=== PATIENT | female | born 1950 | race Caucasian/White ===

== ENCOUNTER 2016-11-13 22:43 | Observation (INO) | payer MEDICARE ==
[2016-11-13] MEDS ORDERED: ADENOSINE 6 MG/2 ML SYR IV ONE (23:03)
[2016-11-13] MEDS ORDERED: NS 1,000 ML IV ONE (23:04)
[2016-11-13] MEDS ORDERED: DILTIAZEM 25 MG/5 ML VIAL IV ONE ×2 (23:13)
[2016-11-13 23:17] LABS: AUTOMATED LYMPH 28.5 % (17-44); AUTOMATED MONOCYTE 6.5 % (3-10); MPV 7.4 fL (7.4-10.4)
[2016-11-13] MEDS ORDERED: Diltiazem HCl 100 MG in D5W 100 ML IV SCH (23:20)
[2016-11-13 23:27] LABS: PARTIAL THROMB. TIME 22.2 SEC (22-35); PT-INR 0.9
--- NOTE | 2016-11-13 23:37 | EDPRACDOC ---
<Junior Stokesmond Antonio - Last Filed: 11/14/16 00:09> - General Information Information Source: Patient Mode of Arrival: Car - History of Present Illness Onset: 2129 HPI: PT PRESENTS DUE TO SUBSTERNAL CHEST PAIN AND TACHYCARDIA. STATES THIS BEGAN AROUND 2129 TONIGHT WHILE SHE WAS WATCHING TV. DENIES NAUSEA, VOMITING, CHILLS OR FEVER. PT HAS NO HX OF CARDIAC ISSUES. STATES SHE HAD A CVA IN 2012. FAMILY HISTORY OF CHF Symptoms Started: Reports: At Rest Relevant History: Reports: None Pulse is: Rapid Defibrillator Firing: No Worsens with: Reports: Nothing Associated signs & symptoms: Reports: Chest pain Chest Pain Location: Reports: Substernal Pain Quality: Reports: Sharp, Stabbing Pain Radiation: Reports: Back <Nancy Flores - Last Filed: 11/14/16 02:10> - General Information Chief Complaint: Chest Pain Stated Complaint: CHEST PAIN Time Seen by Provider: 11/13/16 23:02 Home Medications: Home Medications Aspirin [Aspirin EC] 81 mg PO DAILY 04/06/16 Furosemide [Lasix] 20 mg PO DAILY PRN 04/06/16 Pravastatin [Pravachol] 80 mg PO HS 04/06/16 Cholecalciferol (Vitamin D3) [Vitamin D3] 1,000 unit PO DAILY 11/13/16 Allergies/Adverse Reactions: Allergies Allergy/AdvReac Type Severity Reaction Status Date / Time doxycycline calcium Allergy Unknown Verified 11/13/16 22:54 [From Vibramycin] doxycycline hyclate Allergy Unknown Verified 11/13/16 22:54 [From Vibramycin] doxycycline monohydrate Allergy Unknown Verified 11/13/16 22:54 [From Vibramycin] Latex, Natural Rubber Allergy Unknown Verified 11/13/16 22:54 ED Past Medical History - History Reviewed Yes Nurses notes reviewed and agree except as marked - Patient Medical History Psychological History: Denies: Depression - Social Medical History Smoking Status: Never smoker <Nancy Flores - Last Filed: 11/14/16 02:10> EDM Review of Systems - Review of Systems ROS Negative Except as Marked: Yes All systems reviewed and were negative except as marked <Nancy Flores - Last Filed: 11/14/16 02:10> - Physical Exam Last recorded Vital Signs: Last Vital Signs Temp 97.6 F 11/13/16 23:04 Pulse 98 11/13/16 23:38 Resp 20 11/13/16 23:38 BP 123/61 11/13/16 23:38 Pulse Ox 91 11/13/16 23:38 Oxygen Pulse Oxygen Saturation 91 O2 Device Room Air Oxygen Flow Rate Fraction of Inspired Oxygen ( FIO2) <Manolo Stokes - Last Filed: 11/14/16 00:09> - Physical Exam Constitutional: Alert Oriented to: Time, Person, Place Last recorded Vital Signs: Last Vital Signs Temp 97.6 F 11/13/16 23:04 Pulse 171 H 11/13/16 23:21 Resp 24 11/13/16 22:48 BP 163/84 11/13/16 23:09 Pulse Ox 91 11/13/16 22:48 Oxygen Pulse Oxygen Saturation 91 O2 Device Room Air Oxygen Flow Rate Fraction of Inspired Oxygen ( FIO2) - HEENT Head: Normal ( normocephalic) Eye Exam: Normal (PERRL, EOMI, Sclera white) Oropharynx: Normal (Pharynx:Moist without exudate,Gums-no swelling) Tympanic Membrane: Normal Nose: No Symptoms Reported (septum midline) Neck: Normal (FROM, trachea at midline) - Respiratory/Cardiovascular Respiratory: Normal - CTA (BBS clear to auscultation without adventitious sounds ) Cardiovascular: Tachycardia - GI Auscultation: Normal (NABS) Palpation: Normal (Soft,No rebound or guarding, non distended) Tenderness: Non tender Mcneal's Sign: Negative Rectal Exam: Deferred - Musculoskeletal Back: Normal (Non-Tender) Extremities: Normal (Normal tone, Pulses 2+ No cyanosis or edema, FROM) - Integumentary Skin: Normal, Warm, Dry Lymphatics: Normal (no adenopathy) - Neurologic Memory Impaired: Normal Motor Function: Normal (Normal tone, Pulses 2+ No cyanosis or edema, FROM) Cranial Nerve: Normal (CN II-X11 intact sensation, strength 5/5) Cerebellar: Normal Mood Description: Normal Perception: Normal <Nancy Flores - Last Filed: 11/14/16 02:10> - Re-evaluation Re-evaluation 2 Re-evaluation Time: 23:37 (i was present and examined the pt.te heart rhythm was irregular. adenosine caused a pause, and aflutter resumed.she converted to sinus tach transiently, thn back to a flutter.diltiazem wasadministered.) Re-evaluation 3 Re-evaluation Time: 00:09 (nsr rate 90s. chest pressure improved, 02/18.) - Results 11/13/16 23:05 11/13/16 23:05 WBC 10.0 xk/uL (3.8-10.8) 11/13/16 23: RBC 4.72 xM/uL (4.20-5.40) 11/13/16 23:05 Hgb 14.4 g/dL (12.0-16.0) 11/13/16 23:05 Hct 43.6 % (36-47) 11/13/16 23: MCV 92 fL (81-99) 11/13/16 23: MCH 30.5 pg (27-32) 11/13/16 23: MCHC 33.0 g/dl (33-36) 11/13/16 23: RDW 14.5 % (11.5-14.5) 11/13/16 23: Plt Count 281 xk/uL (130-400) 11/13/16 23:05 MPV 7.4 fL (7.4-10.4) 11/13/16 23:05 Neut % (Auto) 62.0 % (45-76) 11/13/16 23:05 Lymph % (Auto) 28.5 % (17-44) 11/13/16 23: [place] % (Auto) 6.5 % (3-10) 11/13/16 23: Eos % (Auto) 2.0 % (0-5) 11/13/16 23:05 Baso % (Auto) 1.0 % (0-2) 11/13/16 23:05 Absolute Neuts (auto) 6.20 xk/uL (1.7-8.2) 11/13/16 23: Absolute Lymphs (auto) 2.80 xk/uL (0.65-4.75) 11/13/16 23:05 PT 9.6 SEC (9.2-11.2) 11/13/16 23:05 INR 0.9 11/13/16 23:05 APTT 22.2 SEC (22-35) 11/13/16 23:05 Sodium 142 mEq/L (137-146) 11/13/16 23:05 Potassium 3.9 mEq/L (3.5-5.1) 11/13/16 23:05 Chloride 103 mEq/L (98-107) 11/13/16 23:05 Carbon Dioxide 23 mMOL/L (22-33) 11/13/16 23:05 Anion Gap 20 mEq/L (8-16) H 11/13/16 23:05 BUN 13 MG/DL (7-17) 11/13/16 23:05 Creatinine 0.70 MG/DL (0.52-1.04) 11/13/16 23:05 Estimated GFR (MDRD) > 60 mL/min (>=60) 11/13/16 23:05 Glucose 106 MG/DL (70-99) H 11/13/16 23:05 Calculated Osmolality 273 MOs/Kg (270-290) 11/13/16 23:05 Calcium 9.5 MG/DL (8.4-10.2) 11/13/16 23:05 Total Bilirubin 0.4 MG/DL (0.2-1.3) 11/13/16 23:05 AST 25 IU/L (14-36) 11/13/16 23:05 ALT 30 IU/L (9-52) 11/13/16 23:05 Alkaline Phosphatase 90 IU/L (55-165) 11/13/16 23:05 Creatine Kinase 50 IU/L (30-134) 11/13/16 23:05 Total Protein 7.4 G/DL (6.3-8.2) 11/13/16 23:05 Albumin 4.3 G/DL (3.5-5.0) 11/13/16 23:05 Lab Results 11/13/16 11/13/16 11/13/16 23:05 23:05 23:05 WBC 10.0 RBC 4.72 Hgb 14.4 Hct 43.6 MCV 92 MCH 30.5 MCHC 33.0 RDW 14.5 Plt Count 281 MPV 7.4 Neut % (Auto) 62.0 Lymph % (Auto) 28.5 [place] % (Auto) 6.5 Eos % (Auto) 2.0 Baso % (Auto) 1.0 Absolute Neuts (auto) 6.20 Absolute Lymphs (auto) 2.80 PT 9.6 INR 0.9 APTT 22.2 Sodium 142 Potassium 3.9 Chloride 103 Carbon Dioxide 23 Anion Gap 20 H BUN 13 Creatinine 0.70 Estimated GFR (MDRD) > 60 Glucose 106 H Calculated Osmolality 273 Calcium 9.5 Total Bilirubin 0.4 AST 25 ALT 30 Alkaline Phosphatase 90 Creatine Kinase 50 Total Protein 7.4 Albumin 4.3 <Manolo Stokes - Last Filed: 11/14/16 00:09> - Differential Diagnosis Atrial fibrillation, PSVT - Re-evaluation Re-evaluation 1 Re-evaluation Time: 23:37 (ADENISONE GIVEN, PT APPEARS TO BE HAVING AFIB, AFLUTTER. WILL CONTINUE TO MONITOR) Re-evaluation 4 Re-evaluation Time: 00:22 (HEART RATE NOW 86, NSR. PT HAS MINIMAL CHEST PRESSURE. WILL GIVE NITRO. VSS. NO ACUTE DISTRESS NOTED. ) - Results 11/13/16 23:05 11/13/16 23:05 WBC 10.0 xk/uL (3.8-10.8) 11/13/16 23:05 RBC 4.72 xM/uL (4.20-5.40) 11/13/16 23:05 Hgb 14.4 g/dL (12.0-16.0) 11/13/16 23:05 Hct 43.6 % (36-47) 11/13/16 23:05 MCV 92 fL (81-99) 11/13/16 23:05 MCH 30.5 pg (27-32) 11/13/16 23:05 MCHC 33.0 g/dl (33-36) 11/13/16 23:05 RDW 14.5 % (11.5-14.5) 11/13/16 23:05 Plt Count 281 xk/uL (130-400) 11/13/16 23:05 MPV 7.4 fL (7.4-10.4) 11/13/16 23:05 Neut % (Auto) 62.0 % (45-76) 11/13/16 23:05 Lymph % (Auto) 28.5 % (17-44) 11/13/16 23:05 Frio % (Auto) 6.5 % (3-10) 11/13/16 23:05 Eos % (Auto) 2.0 % (0-5) 11/13/16 23:05 Baso % (Auto) 1.0 % (0-2) 11/13/16 23:05 Absolute Neuts (auto) 6.20 xk/uL (1.7-8.2) 11/13/16 23:05 Absolute Lymphs (auto) 2.80 xk/uL (0.65-4.75) 11/13/16 23:05 PT 9.6 SEC (9.2-11.2) 11/13/16 23:05 INR 0.9 11/13/16 23:05 APTT 22.2 SEC (22-35) 11/13/16 23:05 Lab Results 11/13/16 11/13/16 23:05 23:05 WBC 10.0 RBC 4.72 Hgb 14.4 Hct 43.6 MCV 92 MCH 30.5 MCHC 33.0 RDW 14.5 Plt Count 281 MPV 7.4 Neut % (Auto) 62.0 Lymph % (Auto) 28.5 [place] % (Auto) 6.5 Eos % (Auto) 2.0 Baso % (Auto) 1.0 Absolute Neuts (auto) 6.20 Absolute Lymphs (auto) 2.80 PT 9.6 INR 0.9 APTT 22.2 - EKG EKG #1 Initial EKG Time: 22:59 -: Yes EKG interpreted by me Rate: bpm: 173 [place]: Normal Rhythm: PSVT Block: None Hypertrophy: None ST: Normal EKG #2 Initial EKG Time: 23:17 -: Yes EKG interpreted by me Rate: bpm: 157 [place]: Normal Rhythm: Aflutter Block: None Hypertrophy: None ST: Normal EKG #3 Initial EKG Time: 00:30 -: Yes EKG interpreted by me Rate: bpm: 81 [place]: Normal Rhythm: NSR Block: None Hypertrophy: None ST: Normal Comments: [facility] [place] <Nancy Flores - Last Filed: 11/14/16 02:10> <Manolo Stokes - Last Filed: 11/14/16 00:09> - Departure Disposition: Admit IP To This Hospital Education/Counseling Given To: Patient Education/Counseling Given Regarding: Diagnosis, Treatment, Prognosis, Follow Up Decision to Admit Time: 02:09 Decision to admit date: 11/14/16 Decision to admit: from ED - Physician Consulted Hospitalist Time Called: 02:09 Provider Called: Yrn Nguyen [employer] Returned Call: 02:10 <Nancy Flores - Last Filed: 11/14/16 02:10> - Departure Condition: Stable Final Diagnosis: New onset atrial flutter, PSVT (paroxysmal supraventricular tachycardia) Instructions: Chest Pain (ED) Referrals: Jeremy Doe MD [Primary Care Provider] - One Week
[2016-11-13 23:49] LABS: BLOOD UREA NITROGEN 13 MG/DL (7-17); CALCIUM 9.5 MG/DL (8.4-10.2); CALCULATED OSMOLALITY 273 MOs/Kg (270-290); CHLORIDE 103 mEq/L (98-107); CPK TOTAL WITH POSSIBLE MB 50 IU/L (30-134); GLUCOSE 106 MG/DL (70-99); SODIUM LEVEL 142 mEq/L (137-146); TOTAL PROTEIN 7.4 G/DL (6.3-8.2)
--- NOTE | 2016-11-14 00:08 | DIRPT ---
CLINICAL DATA: Acute onset of sharp mid chest pain and pressure. Initial encounter. EXAM: CHEST 2 VIEW COMPARISON: None. FINDINGS: The lungs are well-aerated. Minimal bibasilar atelectasis is noted. There is no evidence of pleural effusion or pneumothorax. The heart is borderline normal in size. No acute osseous abnormalities are seen. IMPRESSION: Minimal bibasilar atelectasis noted. Lungs otherwise clear. Electronically Signed By: Curtis Castro M.D. On: 11/14/2016 00:05
[2016-11-14] MEDS ORDERED: NITROGLYCERINE 2 % OINTMENT PACK TOP ONE (00:12)
[2016-11-14 00:51] LABS: LEUKOCYTES/URINE NEG (NEGATIVE); NITRITE/URINE NEG (NEGATIVE); URINE OCCULT BLOOD NEG (NEG/TRACE)
[2016-11-14] MEDS: IBUPROFEN 800 MG TAB PO ONE ×2 (01:29→01:33)
[2016-11-14] MEDS ORDERED: ACETAMINOPHEN 325 MG/TAB TABLET PO ONE ×2 (01:32)
[2016-11-14 02:16] LABS: CPK TOTAL WITH POSSIBLE MB 41 IU/L (30-134)
[2016-11-14] MEDS ORDERED: ACETAMINOPHEN 325 MG/TAB TABLET PO PRN (02:28)
[2016-11-14] MEDS ORDERED: ONDANSETRON HCL 4 MG/2 ML VIAL IV PRN (02:28)
[2016-11-14] MEDS ORDERED: NITROGLYCERINE 0.4 MG TAB SL PRN (02:29)
--- NOTE | 2016-11-14 02:33 | HISTPHYS ---
- Chief Complaint chest pain - History of Present Illness This is a pleasant 58-year-old female with a prior history of hypertension who was being admitted to the hospital [facility] due to chest pain. She was at rest at about 9:00 p.m. earlier this evening when she suddenly started to have chest tightness and chest pain in the midsternal area, without any radiation. She can 't emergency department, was found in the waiting area to have significant tachycardia. EKG showed SVT, after adenosine was given was found to be flutter. She responded well to IV diltiazem push, and was later placed on a drip. She converted to sinus rhythm after this, and rates have since been controlled. Despite this, she continues to have chest tightness and discomfort. As such, hospitalist group was consulted for further evaluation and potential coronary workup. No aggravating or alleviating factors. No therapies tried prior to arrival to the hospital. Patient denies any fevers, chills, shortness of breath, nausea, vomiting, diarrhea, rashes on the skin. - Medical History Psychological History: Denies: Depression - Medictions/Allergies Allergies doxycycline calcium [From Vibramycin] Allergy (Verified 11/13/16 22:54) Unknown doxycycline hyclate [From Vibramycin] Allergy (Verified 11/13/16 22:54) Unknown doxycycline monohydrate [From Vibramycin] Allergy (Verified 11/13/16 22:54) Unknown Latex, Natural Rubber Allergy (Verified 11/13/16 22:54) Unknown Home Medications Aspirin [Aspirin EC] 81 mg PO DAILY 04/06/16 Furosemide [Lasix] 20 mg PO DAILY PRN 04/06/16 Pravastatin [Pravachol] 80 mg PO HS 04/06/16 Cholecalciferol (Vitamin D3) [Vitamin D3] 1,000 unit PO DAILY 11/13/16 - Social History Smoking Status: Never smoker - Review of Systems Constitutional: No Symptoms Reported (No fever, chills, wt loss/gain, fatigue) Eyes: No Symptoms Reported (No blurry vision, visual changes) Respiratory: No Symptoms Reported (No cough,wheezing or shortness of breath) Cardiovascular: No Symptoms Reported (No Chest pain, palpitations) Gastrointestinal: No Symptoms Reported (No abdominal pain, nausea, vomiting, diarrhea or constipation) Genitourinary: No Symptoms Reported (No dysuria) Musculoskeletal:: No Symptoms Reported (No headache, dizzness, seizures or focal weakness) Integumentary: No Symptoms Reported (No rashes or lesions) Hematologic: No Symptoms Reported (No bleeding or easy bruising) Endocrine: No Symptoms Reported (No polyuria) - Physical Exam Vital Signs: Initial Vitals Pulse Rate 181 H 11/13/16 22:48 Respiratory Rate 24 11/13/16 22:48 Blood Pressure 163/84 11/13/16 22:48 Pulse Oxygen Saturation 91 11/13/16 22:48 Constitutional: Alert (Awake, Fully oriented, well appearing. No apparent distress) Oriented to: Time, Person, Place - HEENT Head: Normal (normocephalic,atraumatic, trachea midline) Eye: Normal (EOMI, Sclera white) Oropharynx: Normal (moist) Nose: No Symptoms Reported (without discharge or bleeding) Respiratory: Normal - CTA (Clear to auscultation bilaterally, no wheezing,rales or rhonchi. No use of accessory muscles) Cardiovascular: Normal (RRR, no murmurs, rubs or gallops) - GI Palpation: Normal (soft, non distended and nontender) - Musculoskeletal Extremities: Normal (normal tone, no cyanosis or edema) - Integumentary Skin: Normal (no rashes or lesions) - Neurologic Cranial Nerve: Normal (CN II-XII intact) Mood Description: Normal (Fully oriented and appropiate affect) - Focused CV Perfusion Exam Vital Signs: Last Vital Signs Temp 97.6 F 11/13/16 23:04 Pulse 85 11/14/16 01:55 Resp 20 11/14/16 01:55 BP 150/70 11/14/16 01:55 Pulse Ox 96 11/14/16 01:55 - Lab Results Laboratory Tests 11/13/16 11/13/16 11/13/16 23:05 23:05 23:05 WBC 10.0 Hgb 14.4 INR 0.9 Potassium 3.9 BUN 13 Creatinine 0.70 AST 25 Troponin I < 0.01 - Diagnostic Findings CXR: Unremarkable, no acute process. - Assessment (1) Chest pain R07.9 - CHEST PAIN, UNSPECIFIED Acute Admit under observation status using chest pain observation order set. First troponin negative, 3 will be trended and if negative patient will undergo cardiac stress testing in the morning. Started aspirin and low-dose beta-quique. Continue home statin. Oxygen supplementation. Morphine IV p.r.n. chest pain. Patient has been advised that if she is hemodynamically stable, with rates controlled and with negative stress imaging, she will likely be discharged home in the morning with instructions to follow up with her outpatient primary care provider (2) New onset atrial flutter I48.92 - UNSPECIFIED ATRIAL FLUTTER Acute Unclear etiology. Responded to adenosine, and then diltiazem drip. If stable, start oral diltiazem in the morning. Cardiac imaging as above. Started on anticoagulation with Lovenox, if significant coronary artery disease ruled out, would start novel oral anticoagulant. (3) HLD (hyperlipidemia) E78.5 - HYPERLIPIDEMIA, UNSPECIFIED Acute Continue home statin.
[2016-11-14] MEDS ORDERED: Pharmacy Order Set Alert SCH (03:00)
[2016-11-14] MEDS ORDERED: Enoxaparin Treatment Dose per Pharmacy SQ SCH (03:00)
[2016-11-14] MEDS ORDERED: ENOXAPARIN 100 MG PFS SQ SCH (03:00)
[2016-11-14 03:33] VITALS: BMI 35.0
[2016-11-14] MEDS ORDERED: Vaccine Screening Complete SCH (05:00)
[2016-11-14] MEDS ORDERED: REGADENOSON 0.4 MG/5 ML SYRINGE IV ONE (08:00)
[2016-11-14] MEDS ORDERED: SODIUM CHLORIDE 0.9% 10 ML FLUSH FLUSH ONE (08:00)
[2016-11-14] MEDS ORDERED: METOPROLOL TARTRATE 25 MG TAB PO SCH (09:00)
[2016-11-14] MEDS ORDERED: Non-Formulary Medication ITEM (Cholecalciferol (Vitamin D3) [Vitamin D3] 1,000 UNIT) PO SCH (09:00)
[2016-11-14] MEDS ORDERED: SESTAMIBI 8 MCI V IV ONE (09:19)
[2016-11-14 11:01] VITALS: BP 166/73
[2016-11-14 11:05] VITALS: TEMP 96.8
--- NOTE | 2016-11-14 11:36 | PCM.STRESS ---
TREADMILL/REGADENOSON MYOCARDIAL PERFUSION STRESS TEST DATE OF PROCEDURE: 11/14/16 INDICATION: Chest pain-KS ruled out RESTING DATA: HR 67 B/P 144/80 Chest clear Cor: Regular rhythm, soft ejection murmur RESTING EKG: [NSR] rare PVC. Otherwise normal PROTOCOL: Approx 8 mCi of technetium-99m pyrophosphate (Cardiolyte) was injected intravenously and tomograhic imaging performed at rest. An hour later, the patient performed treadmilll exericse on a modified Mario protocol to a level of 2.3 METS. She can go no further because of dyspnea and leg fatigue. 0.4 mg of regadenoson was therefore administered intravenously during treadmill exercise, and heart rate eboni further to 136 per minute, 87% of predicted maxium. Following regadenoson, an additional 25 mCi of Cardiolyte was injected and tomographic imaging repeated leg fatigue and regadenoson administration. No chest pain. STRESS EKG: Rhythm: Sinus with rare PVCs. ST-T changes: None MYOCARDIAL PERFUSION IMAGING: Rotational display of raw projection data documents [stable pt position during imaging]. [There is a high right hemidiaphragm and prominent hepatic uptake]. There is homogeneous radiotracer uptake throughout however, on both rest and stress images. No perfusion defects. Gated imaging reveals normal wall thickening in all segments within normal ESD of 18 mL and an ejection fraction of 75% IMPRESSION: (1) Functional capacity is poor. 2.3 METS, limited by leg fatigue (2) Normal resting left ventricular size and function, with end-systolic volume of 18 ml and ejection fraction of 75 %. (3) No clinical or scintigraphic evidence of ischemia at target HR, following regadenoson vasodilator stress. Negative Treadmill/regadenoson perfusion stress test for ischemia.
[2016-11-14] MEDS ORDERED: CHOLECALCIFEROL 1000 UNITS TAB PO SCH (12:00)
--- NOTE | 2016-11-14 14:06 | PCM.DCS92 ---
- Final/Secondary Discharge Diagnosis (1) Chest pain Acute R07.9 - CHEST PAIN, UNSPECIFIED Present on Admission: Yes precordial chest pain R07.2 - Precordial pain Comment: Admit under observation status using chest pain observation order set. First troponin negative, 3 will be trended and if negative patient will undergo cardiac stress testing in the morning. Started aspirin and low-dose beta-quique. Continue home statin. Oxygen supplementation. Morphine IV p.r.n. chest pain. Patient has been advised that if she is hemodynamically stable, with rates controlled and with negative stress imaging, she will likely be discharged home in the morning with instructions to follow up with her outpatient primary care provider (2) HLD (hyperlipidemia) Chronic E78.5 - HYPERLIPIDEMIA, UNSPECIFIED Present on Admission: Yes unspecified E78.5 - Hyperlipidemia, unspecified Comment: Continue home statin. (3) PSVT (paroxysmal supraventricular tachycardia) Acute I47.1 - SUPRAVENTRICULAR TACHYCARDIA Present on Admission: Yes Discharge Disposition: Home Discharge Condition: Improved Cognitive Discharge Status: Unimpaired Fuctional Discharge Status: Independent Physician Follow up/Referrals: Jeremy Doe MD [Primary Care Provider] - One Week Discharge Home Medication List Aspirin [Aspirin EC] 81 mg PO DAILY 04/06/16 [History Confirmed 11/13/16 Last Taken 11/13/16] Furosemide [Lasix] 20 mg PO DAILY PRN 04/06/16 [History Confirmed 11/13/16 Last Taken 04/06/16] Pravastatin [Pravachol] 80 mg PO HS 04/06/16 [History Confirmed 11/13/16 Last Taken 11/13/16] Cholecalciferol (Vitamin D3) [Vitamin D3] 1,000 unit PO DAILY 11/13/16 [History Confirmed 11/13/16 Last Taken 11/13/16] Trazodone HCl 100 mg PO QHS PRN 11/14/16 [History Confirmed 11/14/16 Last Taken Unknown] 11/13/16 23:05 11/13/16 23:05 Laboratory Results - last 24 hr 11/13/16 11/13/16 11/13/16 23:05 23:05 23:05 WBC 10.0 RBC 4.72 Hgb 14.4 Hct 43.6 MCV 92 MCH 30.5 MCHC 33.0 RDW 14.5 Plt Count 281 MPV 7.4 Neut % (Auto) 62.0 Lymph % (Auto) 28.5 [place] % (Auto) 6.5 Eos % (Auto) 2.0 Baso % (Auto) 1.0 Absolute Neuts (auto) 6.20 Absolute Lymphs (auto) 2.80 PT 9.6 INR 0.9 APTT 22.2 Sodium 142 Potassium 3.9 Chloride 103 Carbon Dioxide 23 Anion Gap 20 H BUN 13 Creatinine 0.70 Estimated GFR (MDRD) > 60 Glucose 106 H Calculated Osmolality 273 Calcium 9.5 Total Bilirubin 0.4 AST 25 ALT 30 Alkaline Phosphatase 90 Creatine Kinase 50 Troponin I < 0.01 Total Protein 7.4 Albumin 4.3 Urine Color Urine Clarity Urine pH Ur Specific [place] Urine Protein Urine Glucose (UA) Urine Ketones Urine Occult Blood Urine Nitrite Urine Bilirubin Urine Urobilinogen Ur Leukocyte Esterase Ur Epithelial Cells Urine Mucus 11/14/16 11/14/16 11/14/16 00:38 01:55 05:15 WBC RBC Hgb Hct MCV MCH MCHC RDW Plt Count MPV Neut % (Auto) Lymph % (Auto) [place] % (Auto) Eos % (Auto) Baso % (Auto) Absolute Neuts (auto) Absolute Lymphs (auto) PT INR APTT Sodium Potassium Chloride Carbon Dioxide Anion Gap BUN Creatinine Estimated GFR (MDRD) Glucose Calculated Osmolality Calcium Total Bilirubin AST ALT Alkaline Phosphatase Creatine Kinase 41 Troponin I < 0.01 < 0.01 Total Protein Albumin Urine Color Pale yellow Urine Clarity Clear Urine pH 6.0 Ur Specific [place] 1.005 Urine Protein Neg Urine Glucose (UA) Neg Urine Ketones Neg Urine Occult Blood Neg Urine Nitrite Neg Urine Bilirubin Neg Urine Urobilinogen <2.0 Ur Leukocyte Esterase Neg Ur Epithelial Cells 2+ Urine Mucus Occ O2 Device: Room Air Diet at Discharge: Heart Healthy, Low Fat Activity: As Tolerated Discontinue use of:: Alcohol, All Types of Tobacco - DC Summary Notes HPI/Notes: This is a pleasant 66-year-old female with a prior history of hypertension who was being admitted to the [facility] due to chest pain. She was at rest at about 9:00 p.m. earlier this evening when she suddenly started to have chest tightness and chest pain in the midsternal area, without any radiation. She can 't emergency department, was found in the waiting area to have significant tachycardia. EKG showed SVT, after adenosine was given was found to be flutter. She responded well to IV diltiazem push, and was later placed on a drip. She converted to sinus rhythm after this, and rates have since been controlled. Despite this, she continues to have chest tightness and discomfort. As such, hospitalist group was consulted for further evaluation and potential coronary workup. No aggravating or alleviating factors. No therapies tried prior to arrival to the hospital. Patient denies any fevers, chills, shortness of breath, nausea, vomiting, diarrhea, rashes on the skin. Hospital Course Note:: Discharge summary on patient named ALICIA CASTANEDA admitted to [facility] on 11/14/16 by Yrn Nguyen MD. Date of discharge is 2016. She is admitted for evaluation of chest pain and had negative troponins and a negative Lexiscan stress is following morning with a normal ejection fraction. Her atrial flutter converted to sinus rhythm the wee hours of the morning with the administration of Cardizem intravenously. She is ready for discharge and follow up with primary care provider Dr. Doe. No new prescriptions were given. CC: Dr. Doe Total Time: 39 min Code: Other (236) - Physical Exam Vital Signs: Last Vital Signs Temp 96.8 F L 11/14/16 11:00 Pulse 80 11/14/16 11:05 Resp 20 11/14/16 11:00 BP 166/73 11/14/16 11:00 Pulse Ox 96 11/14/16 11:00 Oxygen Pulse Oxygen Saturation 96 O2 Device Room Air Oxygen Flow Rate 2 Fraction of Inspired Oxygen ( FIO2) Constitutional: Alert (Awake, Fully oriented, well appearing. No apparent distress) Oriented to: Time, Person, Place - HEENT Head: Normal (normocephalic,atraumatic, trachea midline) Eye: Normal (EOMI, Sclera white) Oropharynx: Normal (moist) ENT EAC: Normal (No oropharyngeal lesions or erythema. Mucous membranes are dry. ) TMJ: Normal Nose: No Symptoms Reported (without discharge or bleeding) - Respiratory/Cardiovascular Respiratory: Normal - CTA (Clear to auscultation bilaterally, no wheezing,rales or rhonchi. No use of accessory muscles) Cardiovascular: Normal (RRR, no murmurs, rubs or gallops) - GI Auscultation: Normal (normal active sounds) Palpation: Normal (soft, non distended and nontender) Tenderness: Non tender (No rebound or guarding) Mcneal's Sign: Negative Stool: Brown - Exam Deferred: Yes - Musculoskeletal Back: Normal (Non-Tender) Extremities: Normal (normal tone, no cyanosis or edema) - Integumentary Skin: Normal (no rashes or lesions) Lymphatics: Normal - Neurologic Memory Impaired: Normal Motor Function: Normal (Motor 5/5 throughout.Normal tone, Pulses 2+ No cyanosis or edema, FROM) Cranial Nerve: Normal (CN II-XII intact sensation, strength 5/5) Cerebellar: Normal (Babinski: toes downgoing bilaterally. Intact Finger to nose. Sensory grossly intact to light touch. Intact rapid alternating movements bilaterally. No pronator drift.) Mood Description: Normal (Fully oriented and appropiate affect) Thought: Coherent Perception: Normal (Normal and appropriate affect.)
[2016-11-14 14:22] VITALS: PULSE 82
[2016-11-14] MEDS ORDERED: PRAVASTATIN 80 MG TABLET PO SCH (21:00)
--- NOTE | 2016-11-17 12:46 | CAPUEKG ---
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 Borderline ECG Electronically Signed On 11-17-16 12:46:29 EST by Mitchel Castaneda <[email or web address]> [id number]
== END 2016-11-14 14:45 | disposition home or self-care (01) ==
LOC: ED 22:43 → ICU 11-14 02:29
PROVIDERS: ADMIT Internal Medicine; ATTEND Internal Medicine
DX: R07.9 Chest pain, unspecified (principal); I48.92 Unspecified atrial flutter; E78.5 Hyperlipidemia, unspecified; I47.1 Supraventricular tachycardia; Z79.82 Long term (current) use of aspirin; Z79.899 Other long term (current) drug therapy
CPT/HCPCS: 36415; 71020; 78452; 80053; 81001; 82550; 84484; 85025; 85610; 85730; 87641; 93005; 93017; 96361; 96365; 96372; 96375; 99285; A4216; A9270; A9500; G0378; J0153; J1650; J2785; J3490; J7060

== ENCOUNTER 2016-11-27 23:12 | Emergency (ER) | payer MEDICARE ==
[2016-11-27 23:28] VITALS: TEMP 97.6; BMI 35.2
[2016-11-28] MEDS ORDERED: OXYCODONE HCL 5 MG TABLET PO ONE (00:06)
[2016-11-28 00:30] LABS: AUTOMATED BASOPHIL 0.7 % (0-2); AUTOMATED EOSINOPHIL 1.7 % (0-5); AUTOMATED LYMPH 28.9 % (17-44); AUTOMATED MONOCYTE 8.3 % (3-10); AUTOMATED NEUTROPHIL 60.4 % (45-76); MPV 8.3 fL (7.4-10.4)
[2016-11-28 00:38] LABS: BLOOD UREA NITROGEN 17 MG/DL (7-17); CALC CORRECTED 9.5 MG/DL (8.4-10.2); CALCIUM 9.2 MG/DL (8.4-10.2); CALCULATED OSMOLALITY 272 MOs/Kg (270-290); CHLORIDE 105 mEq/L (98-107); GLUCOSE 88 MG/DL (70-99); SODIUM LEVEL 141 mEq/L (137-146); TOTAL PROTEIN 6.9 G/DL (6.3-8.2)
--- NOTE | 2016-11-28 01:00 | EDPRACDOC ---
- General Information Chief Complaint: Headache Stated Complaint: HEADACHE Time Seen by Provider: 11/27/16 23:54 Information Source: Patient Home Medications: Home Medications Aspirin [Aspirin EC] 81 mg PO DAILY 04/06/16 Furosemide [Lasix] 20 mg PO DAILY PRN 04/06/16 Cholecalciferol (Vitamin D3) [Vitamin D3] 1,000 unit PO DAILY 11/13/16 Trazodone HCl 100 mg PO QHS PRN 11/14/16 Atorvastatin Calcium [Lipitor] 20 mg PO HS 11/27/16 Carvedilol [Coreg] 6.25 mg PO BID 11/27/16 Cefdinir 300 mg PO BID #20 capsule 11/28/16 Hydrocodone Bit/Acetaminophen [[place] 5-325 Tablet] 1 each PO Q4H #15 tab Pseudoephedrine [Sudafed] 120 mg PO BID #20 crc 11/28/16 Allergies/Adverse Reactions: Allergies Allergy/AdvReac Type Severity Reaction Status Date / Time doxycycline calcium Allergy Severe Unknown Verified 11/27/16 23:28 [From Vibramycin] ibuprofen Allergy Severe See Verified 11/27/16 23:28 Comments Latex, Natural Rubber Allergy Severe Unknown Verified 11/27/16 23:28 doxycycline hyclate Allergy Unknown Verified 11/27/16 23:28 [From Vibramycin] doxycycline monohydrate Allergy Unknown Verified 11/27/16 23:28 [From Vibramycin] - History of Present Illness Onset: 1.5 HOUR HPI: PT PRESENTS TODAY WITH SUDDEN ONSET OF SEVERE SAINI 1.5 HOURS AGO. PT STATES THE PAIN IS BEHIND HER LEFT EYE AND SHE IS HAVING ASSOCIATED PHOTOPHOBIA/TEARING/ BLURRED VISION. STATES IT FEELS LIKE "AN ICE CREAM SAINI". NO PMH OF MIGRAINES. DENIES FEVER, DIZZINESS, CP, SHOB, ABD PAIN, N/V/D. HOLDING FACE IN APPARENT PAIN. Location: Reports: Retroorbital Pain Quality: Reports: Severe, Stabbing Relevant History of: Reports: None Associated Signs and Symptoms: Reports: Occasional Headache, Vision Changes ED Past Medical History - History Reviewed Yes Nurses notes reviewed and agree except as marked - Patient Medical History Cardiac History: Reports: Hypertension, Hypercholesterolemia GI/ History: Reports: Renal Failure (1990 AFTER TAKEN IBPROFEN) Musculoskeletal History: Reports: Arthritis (LEFT KNEE) Psychological History: Denies: Depression Surgical History: Reports: Appendectomy - Social Medical History Smoking Status: Former smoker EDM Review of Systems - Review of Systems ROS Negative Except as Marked: Yes All systems reviewed and were negative except as marked Constitutional: No Symptoms Reported Eyes: Blurred Vision, Light Sensitive, Pain Ears: No Symptoms Reported Throat: No Symptoms Reported Nose: No Symptoms Reported Respiratory: No Symptoms Reported Cardiovascular: No Symptoms Reported Gastrointestinal: No Symptoms Reported Neurological: Headache Musculoskeletal: No Symptoms Reported Integumentary: No Symptoms Reported - Physical Exam Constitutional: Alert, Distress Oriented to: Time, Person, Place Last recorded Vital Signs: Last Vital Signs Temp 97.6 F 11/27/16 23:25 Pulse 64 11/28/16 00:32 Resp 20 11/28/16 00:32 BP 171/76 11/28/16 00:32 Pulse Ox 97 11/28/16 00:32 Oxygen Pulse Oxygen Saturation 97 O2 Device Room Air Oxygen Flow Rate Fraction of Inspired Oxygen ( FIO2) - HEENT Head: Normal Eye Exam: Other (PERRL; PIN POINT AND DIFFICULT TO ASSESS RED REFLEX; EOMI; WITH HELP, I WAS ABLE TO SEE RED REFLEX; PUPIL IS PERRL; IRIS ROUND; IOP 22 IN BOTH EYES; NO VISUAL DEFECT ON ACUITY EXAM;) Oropharynx: Normal Tympanic Membrane: Normal ENT EAC: Normal Nose: No Symptoms Reported Neck: Normal, Denies Pain, Midline - Respiratory/Cardiovascular Respiratory: Normal - CTA Cardiovascular: Normal - GI Palpation: Normal Tenderness: Non tender - Musculoskeletal Back: Normal Extremities: Normal - Integumentary Skin: Normal Lymphatics: Normal - Neurologic Cerebellar: Normal Mood Description: Normal Thought: Coherent Perception: Normal - Re-evaluation Re-evaluation 1 Re-evaluation Time: 01:05 Re-evaluation: SOME IMPROVEMENT AFTER PAIN MEDICATION - Results 11/27/16 23:34 11/27/16 23:34 WBC 7.5 xk/uL (3.8-10.8) 11/27/16 23:34 RBC 4.37 xM/uL (4.20-5.40) 11/27/16 23:34 Hgb 13.5 g/dL (12.0-16.0) 11/27/16 23:34 Hct 40.5 % (36-47) 11/27/16 23:34 MCV 93 fL (81-99) 11/27/16 23:34 MCH 31.0 pg (27-32) 11/27/16 23:34 MCHC 33.5 g/dl (33-36) 11/27/16 23:34 RDW 14.8 % (11.5-14.5) H 11/27/16 23:34 Plt Count 250 xk/uL (130-400) 11/27/16 23:34 MPV 8.3 fL (7.4-10.4) 11/27/16 23:34 Neut % (Auto) 60.4 % (45-76) 11/27/16 23:34 Lymph % (Auto) 28.9 % (17-44) 11/27/16 23:34 [place] % (Auto) 8.3 % (3-10) 11/27/16 23:34 Eos % (Auto) 1.7 % (0-5) 11/27/16 23:34 Baso % (Auto) 0.7 % (0-2) 11/27/16 23:34 Absolute Neuts (auto) 4.50 xk/uL (1.7-8.2) 11/27/16 23:34 Absolute Lymphs (auto) 2.10 xk/uL (0.65-4.75) 11/27/16 23:34 Sodium 141 mEq/L (137-146) 11/27/16 23:34 Potassium 4.3 mEq/L (3.5-5.1) 11/27/16 23:34 Chloride 105 mEq/L (98-107) 11/27/16 23:34 Carbon Dioxide 27 mMOL/L (22-33) 11/27/16 23:34 Anion Gap 13 mEq/L (8-16) 11/27/16 23:34 BUN 17 MG/DL (7-17) 11/27/16 23:34 Creatinine 0.60 MG/DL (0.52-1.04) 11/27/16 23:34 Estimated GFR (MDRD) > 60 mL/min (>=60) 11/27/16 23:34 Glucose 88 MG/DL (70-99) 11/27/16 23:34 Calculated Osmolality 272 MOs/Kg (270-290) 11/27/16 23:34 Calcium 9.2 MG/DL (8.4-10.2) 11/27/16 23:34 Corrected Calcium 9.5 MG/DL (8.4-10.2) 11/27/16 23:34 Total Bilirubin 0.6 MG/DL (0.2-1.3) 11/27/16 23:34 AST 23 IU/L (14-36) 11/27/16 23:34 ALT 28 IU/L (9-52) 11/27/16 23:34 Alkaline Phosphatase 81 IU/L (55-165) 11/27/16 23:34 Total Protein 6.9 G/DL (6.3-8.2) 11/27/16 23:34 Albumin 3.7 G/DL (3.5-5.0) 11/27/16 23:34 Lab Results 11/27/16 11/27/16 23:34 23:34 WBC 7.5 RBC 4.37 Hgb 13.5 Hct 40.5 MCV 93 MCH 31.0 MCHC 33.5 RDW 14.8 H Plt Count 250 MPV 8.3 Neut % (Auto) 60.4 Lymph % (Auto) 28.9 [place] % (Auto) 8.3 Eos % (Auto) 1.7 Baso % (Auto) 0.7 Absolute Neuts (auto) 4.50 Absolute Lymphs (auto) 2.10 Sodium 141 Potassium 4.3 Chloride 105 Carbon Dioxide 27 Anion Gap 13 BUN 17 Creatinine 0.60 Estimated GFR (MDRD) > 60 Glucose 88 Calculated Osmolality 272 Calcium 9.2 Corrected Calcium 9.5 Total Bilirubin 0.6 AST 23 ALT 28 Alkaline Phosphatase 81 Total Protein 6.9 Albumin 3.7 - Additional Information NOTED NEGATIVE ESR. NOTED MILD PARTIAL OPACIFICATION TO RIGHT MAXILLARY SINUS. WILL EMPIRICALLY TREAT. Decision Time to Discharge: 01:42 - Departure Disposition: Home Condition: Good Final Diagnosis: Sinus headache Instructions: Sinusitis (ED), Migraine Headache (ED) Education/Counseling Given To: Patient Education/Counseling Given Regarding: Diagnosis, Treatment, Follow Up Referrals: Jeremy Doe MD [Primary Care Provider] - One Week Prescriptions: Cefdinir 300 mg PO BID #20 capsule Hydrocodone Bit/Acetaminophen [[place] 5-325 Tablet] 1 each PO Q4H #15 tab Pseudoephedrine [Sudafed] 120 mg PO BID #20 crc Additional Instructions: REST AND PLENTY OF FLUIDS. FOLLOW UP WITH PCP IN 2-3 DAYS IF NEEDED OR FEEL FREE TO RETURN TO ED.
--- NOTE | 2016-11-28 01:28 | DIRPT ---
CLINICAL DATA: Acute onset of left-sided headache and blurred vision. Initial encounter. EXAM: CT HEAD WITHOUT CONTRAST TECHNIQUE: Contiguous axial images were obtained from the base of the skull through the vertex without intravenous contrast. COMPARISON: None. FINDINGS: There is no evidence of acute infarction, mass lesion, or intra- or extra-axial hemorrhage on CT. Scattered periventricular white matter change likely reflects small vessel ischemic microangiopathy. The posterior fossa, including the cerebellum, brainstem and fourth ventricle, is within normal limits. The third and lateral ventricles, and basal ganglia are unremarkable in appearance. The cerebral hemispheres are symmetric in appearance, with normal mccartney-white differentiation. No mass effect or midline shift is seen. There is no evidence of fracture; visualized osseous structures are unremarkable in appearance. The orbits are within normal limits. There is mild partial opacification of the right maxillary sinus. The remaining paranasal sinuses and mastoid air cells are well-aerated. No significant soft tissue abnormalities are seen. IMPRESSION: 1. No acute intracranial pathology seen on CT. 2. Scattered small vessel ischemic microangiopathy. 3. Mild partial opacification of the right maxillary sinus. Electronically Signed By: Curtis Castro M.D. On: 11/28/2016 01:25
[2016-11-28] MEDS ORDERED: DIPHENHYDRAMINE 25 MG CAP PO ONE (01:36)
[2016-11-28] MEDS ORDERED: KETOROLAC TROMETHAMINE 60 MG/2 ML SDV IM ONE (01:36)
[2016-11-28 02:26] VITALS: BP 152/70; PULSE 65
== END 2016-11-28 02:30 | disposition home or self-care (01) ==
LOC: ED 23:12
DX: G44.89 Other headache syndrome (principal)
CPT/HCPCS: 36415; 70450; 80053; 85025; 85651; 96372; 99284; A9270; J1885; J3490